=== PATIENT | female | born 1990 | race Caucasian/White ===

== ENCOUNTER 2023-09-10 22:58 | Emergency (ER) | payer OTHER ==
[~2023-09-10] VITALS: Ht 162.6 cm; Wt 77.1 kg
[2023-09-10] MEDS ORDERED: RIZA10TA98 PO (23:08)
[2023-09-10] MEDS ORDERED: ONDANSETRON ODT 4 MG TAB.RAPDIS ONE (23:26)
[2023-09-10] MEDS ORDERED: HYDROMORPHONE 1 MG/1 ML DISP.SYRIN ONE (23:26)
[2023-09-10] MEDS ORDERED: DEXAMETHASONE SOD PHOSPHATE 4 MG INJ ONE (23:29)
[2023-09-10] MEDS ORDERED: HYDROMORPHONE 1 MG/1 ML DISP.SYRIN IM ONE (23:30)
[2023-09-10] MEDS ORDERED: ONDANSETRON ODT 4 MG TAB.RAPDIS SL ONE (23:30)
[2023-09-10] MEDS ORDERED: DEXAMETHASONE SOD PHOSPHATE 4 MG INJ IM ONE (23:30)
[2023-09-10] MEDS ORDERED: ONDA4TAB11 PO (23:37)
[2023-09-10] MEDS ORDERED: HYDR-3980 PO (23:37)
[2023-09-11 00:27] VITALS: BP 145/80; TEMP 98.5; O2SAT 99
== END 2023-09-11 00:28 | disposition home or self-care (01) ==
LOC: ER 23:04
DX: G43.909 Migraine, unspecified, not intractable, without status migrainosus (principal); Z79.899 Other long term (current) drug therapy
CPT/HCPCS: 99284; 96372 ×2; J1100; J1170; A4606; A4663; Q0162